=== PATIENT | female | born 1975 | race Caucasian/White ===

== ENCOUNTER 2020-07-02 20:30 | Outpatient (CLI) | payer SELFPAY | END 2020-07-02 20:31 | disposition home or self-care (01) | LOC: COV 20:30 | PROVIDERS: ATTEND Family Medicine | DX: Z20.822 Contact with and (suspected) exposure to COVID-19 (principal) ==

== ENCOUNTER 2020-09-17 17:19 | Outpatient (CLI) | payer SELFPAY | END 2020-09-17 17:20 | disposition home or self-care (01) | LOC: COV 17:19 | PROVIDERS: ATTEND Family Medicine | DX: Z20.822 Contact with and (suspected) exposure to COVID-19 (principal) ==